=== PATIENT | male | born 1985 | race African-American/Black ===

== ENCOUNTER 2017-09-27 11:32 | Emergency (ER) | payer OTHER ==
[~2017-09-27] VITALS: Ht 167.6 cm; Wt 54.4 kg
[~2017-09-27 11:32] MED LIST: BACTRIM DS TAB1 EACH PO; ELIMITE60 GM TP; ENTEX PO; KEFLEX500 MG PO; NAPROSYN500 MG PO; NOHOMEMEDICATIONS; NORCO 5-325 TA1 EACH PO; PREDNISONE 20 M20 MG PO; ULTRAM 50MG TAB50 MG PO; ZOFRAN 4 MG ORAL4 MG PO
[2017-09-27] MEDS ORDERED: KEFLEX500 M1 PO (13:24)
[2017-09-27 13:34] VITALS: BP 112/78
== END 2017-09-27 13:34 | disposition home or self-care (01) ==
LOC: ER 11:32
DX: S71.112A Laceration without foreign body, left thigh, initial encounter (principal); F17.210 Nicotine dependence, cigarettes, uncomplicated; W30.89XA Contact with other specified agricultural machinery, initial encounter; Y93.H2 Activity, gardening and landscaping; Y92.89 Other specified places as the place of occurrence of the external cause; Y99.8 Other external cause status